=== PATIENT | male | born 1960 | race Caucasian/White ===

== ENCOUNTER 2016-06-11 12:11 | Inpatient (IN) | payer OTHER ==
[~2016-06-11] VITALS: Ht 175.3 cm; Wt 97.0 kg
[~2016-06-11 12:11] MED LIST: ASP81 GTB; ATOR10TA65; CARV6.2579 PO; FLUV20CA3 PO; OMEG1CAP97 PO; PLAVIX; UBID100C PO; ZETIA PO; [UNRECOGNIZED DRUG - CODE] PO; [UNRECOGNIZED DRUG - OTHER] PO
[2016-06-11 12:22] VITALS: Ht 175.3 cm; Wt 97.0 kg
--- NOTE | 2016-06-11 14:59 | ERD ---
ER Documentation Chief Complaint Date/Time DATE: 06/11/16 TIME: 14:53 Chief Complaint RECTAL PAIN,CONSTIPATION,FEVER AND CHILLS HPI This is a 56-year-old male presents to the ER with a history of constipation for the last 3 days. Patient is also complaining of severe rectal pain. He feels as if "there is a ball in his rectum." Patient developed fevers and chills. This morning patient was able to urinate normally however has not been able to urinate despite feeling urgency. Patient normally has a bowel movement every day without any difficulty. Patient tried taking Preparation H and a laxative. He did have 2 episodes of diarrhea secondary to laxative however is still constipated. Patient is currently sexually active in a monogamous relationship with his of 33 years. He denies any urinary dysuria or frequency. He denies any penile discharge denies any testicular pain. He denies nausea or vomiting. He denies back pain or abdominal pain. He denies any bloody stools. ROS 12 point review of systems was done, all negative except per HPI. Medications Home Meds Reported Medications [Berlinta] No Conflict Check, 90 MG PO BID 01/31/13 Fluvastatin* (Lescol*) 20 Mg Capsule, 20 MG PO DAILY 01/31/13 [Zetia] No Conflict Check, 10 PO HS 11/25/12 Atorvastatin Calcium (Atorvastatin Calcium) 10 Mg Tab, MG HS 1/2 TAB 11/25/12 Carvedilol* (Carvedilol*) 6.25 Mg Tablet, 6.25 MG PO BID 11/25/12 Niacin* (Niaspan*) 1,000 Mg Tablet.sa, 1000 MG PO DAILY 2 TAB 11/25/12 Ubidecarenone (Coenzyme Q10) 100 Mg Capsule, 100 MG PO DAILY 11/25/12 Fish Oil/[place]-3 Fatty Acids (Fish Oil 1,000 Mg Capsule) 1 Cap Capsule, 1 CAP PO DAILY 11/25/12 Aspirin (Aspirin) 81 Mg Chew, 81 MG GTB DAILY 11/25/12 [Plavix] No Conflict Check, 75 MG DAILY 11/25/12 Allergies Allergies: Coded Allergies: No Known Allergy (Verified , 11/25/12) PMhx/Soc History of Surgery: Yes Anesthesia Reaction: No Hx Neurological Disorder: No Hx Respiratory Disorders: No Hx Cardiac Disorders: Yes (HTN) Hx Psychiatric Problems: No Hx Miscellaneous Medical Probl: Yes (HIGH CHOLESTEROL) Hx Alcohol Use: Yes Hx Substance Use: No Hx Tobacco Use: No Smoking Status: Never smoker Physical Exam Vitals Vital Signs Date Time Temp Pulse Resp B/P Pulse Ox O2 Delivery O2 Flow Rate FiO2 06/11/16 15:20 102.7 06/11/16 12:22 99.1 104 18 142/86 98 Physical Exam GENERAL: The patient is well developed and appropriate for usual state of health , in no apparent distress. HEENT: Atraumatic. CHEST: Clear to auscultation bilaterally. There are no rales, wheezes or rhonchi. HEART: Regular rate and rhythm. No murmurs, clicks, rubs or gallops. ABDOMEN: Soft, nontender and nondistended. Good bowel sounds. No rebound or guarding. No gross peritonitis. No gross organomegaly or masses. No Walter sign or McBurney point tenderness. BACK: no flank tenderness. NEURO: Alert and oriented. SKIN: The skin is warm and dry. Result Diagram: 06/11/16 1530 06/11/16 1530 Results 24 hrs Laboratory Tests Test 06/11/16 15:15 06/11/16 15:30 Urine Bacteria FEW Urine Bilirubin 1+ Urine Clarity CLEAR Urine Color YELLOW Urine Glucose 0.1%% Urine Hemoglobin TRACE Urine Ictotest NEGATIVE Urine Ketones TRACE Urine Leukocyte Esterase NEGATIVE Urine Microscopic RBC 0-2/HPF Urine Microscopic WBC 0-2/HPF Urine Nitrite NEGATIVE Urine Specific [place] 1.025 Urine Total Protein 1+ Urine Urobilinogen 0.2 E.U./dL Urine pH 6.0 Alanine Aminotransferase (ALT/SGPT) 69IU/L Albumin 4.2g/dl Albumin/Globulin Ratio 1.20 Alkaline Phosphatase 77IU/L Anion Gap 17 Aspartate Amino Transf (AST/SGOT) 58IU/L Basophils # 0.010^3/ul Basophils % 0.3% Blood Morphology Comment Blood Urea Nitrogen 17mg/dl Calcium Level 9.3mg/dl Carbon Dioxide Level 28mmol/L Chloride Level 99mmol/L Creatinine 1.06mg/dl Direct Bilirubin 0.00mg/dl Eosinophils # 0.010^3/ul Eosinophils % 0.0% Globulin 3.50g/dl Glucose Level 179mg/dl Hematocrit 43.0% Hemoglobin 14.6g/dl Indirect Bilirubin 0.6mg/dl Lymphocytes # 1.210^3/ul Lymphocytes % 17.7% Mean Corpuscular Hemoglobin 28.8pg Mean Corpuscular Hemoglobin Concent 34.1g/dl Mean Corpuscular Volume 84.4fl Mean Platelet Volume 10.3fl Monocytes # 0.710^3/ul Monocytes % 9.8% Neutrophils # 4.810^3/ul Neutrophils % 72.2% Nucleated Red Blood Cells # 0.010^3/ul Nucleated Red Blood Cells % 0.0/100WBC Platelet Count 39964^3/UL Potassium Level 4.0mmol/L Red Blood Count 5.0910^6/ul Red Cell Distribution Width 13.2% Sodium Level 140mmol/L Total Bilirubin 0.6mg/dl Total Protein 7.7g/dl White Blood Count 6.610^3/ul Current Medications Medications (Trade) Dose Ordered Sig/Marcel Route PRN Reason Start Time Stop Time Status Last Admin Dose Admin Acetaminophen 1000 mg 1,000 mg ONCE STAT PO 06/11/16 15:23 06/11/16 15:24 DC 06/11/16 15:27 Sodium Chloride (NS) 1,000 ml @ 1,000 mls/hr Q1H ONCE IV 06/11/16 15:30 06/11/16 16:29 DC 06/11/16 15:35 IV Flush 10 ml 10 ml STK-MED ONCE .ROUTE 06/11/16 16:59 06/11/16 17:00 DC 06/11/16 17:09 Sodium Chloride (NS) 100 ml @ ud STK-MED ONCE .ROUTE 06/11/16 16:59 06/11/16 17:00 DC 06/11/16 17:09 Iohexol (Omnipaque 300mg/ ml) 150 ml STK-MED ONCE .ROUTE 06/11/16 16:59 06/11/16 17:00 DC 06/11/16 17:10 Procedures/MDM ER course patient was stable throughout ER course I discussed his case with , patient did appear to clinically have prostatitis however abscess cannot be ruled out. CT scan was done and did show a perirectal abscess with probable connection to the rectum. Patient will be started on IV antibiotics and he will be admitted for further management and care. Departure Diagnosis: Primary Impression: Perirectal abscess Condition: Stable MARNIE VERONICA Jun 11, 2016 14:59
--- NOTE | 2016-06-11 15:02 | RADRPT ---
PROCEDURE: XR Abdomen 1 vw. CLINICAL INDICATION: Constipation TECHNIQUE: AP view of the abdomen COMPARISON: None. FINDINGS: No organomegaly is identified. There is a small amount of fecal material scattered throughout the co michaela. There is a nonspecific bowel gas pattern. There is no evidence of bowel obstruction. No free air is identified. No calculi are identified. The axial skeleton is unremarkable. IMPRESSION: Unremarkable examination. RPTAT: HGDB .Asad Bhandari MD, MD Date Time Electronically viewed and signed by .Asad Bhandari MD, on 06/11/2016 15:02 .B/
[2016-06-11] MEDS ORDERED: ACETAMINOPHEN 500 MG TAB PO STA (15:23)
[2016-06-11] MEDS ORDERED: SOD CHLORIDE 0.9% 1,000 ML IV ONE ×2 (15:30→18:00)
[2016-06-11 15:46] LABS: ADD UMIC YES; URINE BILIRUBIN (Dip) 1+ (NEGATIVE); URINE BLOOD (Dip) TRACE (NEGATIVE); URINE COLOR YELLOW (YELLOW); URINE KETONES (Dip) TRACE (NEGATIVE); URINE LEUKOCYTE ESTERASE (Dip) NEGATIVE (NEGATIVE); URINE NITRITE (Dip) NEGATIVE (NEGATIVE); URINE TOTAL PROTEIN (Dip) 1+ (NEGATIVE); URINE UROBILINOGEN (Dip) 0.2 E.U./dL (0.1-1.0)
[2016-06-11 15:48] LABS: BASOPHILS % 0.3 % (0.0-2.0); HEMOGLOBIN 14.6 g/dl (14.0-18.0); LYMPHOCYTES # 1.2 10^3/ul (0.8-2.9); LYMPHOCYTES % 17.7 % (15.0-51.0); MEAN CORPUSCULAR HEMOGLOBIN 28.8 pg (29.0-33.0); MEAN CORPUSCULAR HGB CONC 34.1 g/dl (32.0-37.0); MEAN CORPUSCULAR VOLUME 84.4 fl (82.0-101.0); MEAN PLATELET VOLUME 10.3 fl (7.4-10.4); MONOCYTE # 0.7 10^3/ul (0.3-0.9); MONOCYTES % 9.8 % (0.0-11.0); NEUTROPHIL # 4.8 10^3/ul (1.6-7.5); NEUTROPHILS % 72.2 % (39.0-77.0); PLATELET COUNT 108 10^3/UL (140-440); RED BLOOD COUNT 5.09 10^6/ul (4.70-6.10); RED CELL DISTRIBUTION WIDTH 13.2 % (11.5-14.5); UNCORRECTED WBC 6.6 10^3/ul (4.8-10.8); WHITE BLOOD COUNT 6.6 10^3/ul (4.8-10.8)
[2016-06-11 15:51] LABS: CONDITION 1
[2016-06-11 15:56] LABS: ICTOTEST NEGATIVE (NEGATIVE)
[2016-06-11 15:58] LABS: BACTERIA,URINE FEW; URINE RBCS 0-2 /HPF (0)
[2016-06-11 16:04] LABS: ALBUMIN 4.2 g/dl (3.3-4.9)
[2016-06-11 16:07] LABS: ALBUMIN/GLOBULIN RATIO 1.2; BILIRUBIN,INDIRECT 0.6 mg/dl (0-1.1); BILIRUBIN,TOTAL 0.6 mg/dl (0.2-1.3); CREATININE 1.06 mg/dl (0.61-1.24); TOTAL PROTEIN 7.7 g/dl (6.1-8.1)
[2016-06-11 16:08] LABS: CALCIUM 9.3 mg/dl (8.4-10.2)
[2016-06-11] MEDS ORDERED: SOD CHLORIDE 0.9% 100 ML ONE (16:59)
[2016-06-11] MEDS ORDERED: IOHEXOL 300MG/ML 150 ML BTL ONE (16:59)
--- NOTE | 2016-06-11 17:23 | RADRPT ---
PROCEDURE: CT Abdomen and pelvis with contrast CLINICAL INDICATION: rectal pain fevers and chills TECHNIQUE: Spiral CT images through the abdomen and pelvis without administration of oral and duri ng administration of 100 cc of Omnipaque-300 contrast material. Multiplanar reconstructions. The t otal exam CTDI equals 20.46 mGy and the total exam DLP equals 1277.22 mGy-cm. COMPARISON: 12/09/2013 FINDINGS: Slight atelectasis of the lung bases is seen. No pleural effusion is seen. Aortic and coronary artery calcification is again seen. The liver, spleen, adrenals, and pancreas are unremarkable in appearance. Small probable bilateral renal cortical cysts are again seen, 1 on the right likely with a small amount of milk of calcium ur ine. Tiny nonobstructing right renal calyceal stone is again seen. The gallbladder is grossly unre markable. No biliary or pancreatic ductal dilatation is seen. Small fat-containing umbilical hernia . The appendix is normal in appearance. There is a rim-enhancing fluid collection adjacent to the d istal rectum with septations within. This measures 3.8 cm AP by 2.4 cm transverse by 2.7 cm cranial caudad. There is likely fistulous connection with the rectum at the 3 o'clock position. Surroundi ng stranding of the perirectal fat is seen. There is also mild presacral stranding. Colonic divert iculosis without evidence of diverticulitis. There is no evidence for small bowel obstruction or fr ee air. There is mild degenerative change of the spine. IMPRESSION: Perirectal abscess with probable connection to the rectum at the 3 o'clock position. Small renal cysts and tiny nonobstructing right renal stone. RPTAT: HLBE Physician Delgado Date Time Electronically viewed and signed by Physician Delgado on 06/11/2016 17:23 GINA/
[2016-06-11] MEDS ORDERED: ONDANSETRON 4 MG INJ IV STA (17:55)
[2016-06-11] MEDS ORDERED: ERTAPENEM SODIUM 1 GM in SOD CHLORIDE 0.9% 100 ML IVPB ONE (18:00)
[2016-06-11] MEDS ORDERED: morphine 10 MG INJ IV ONE (18:00)
[2016-06-11] MEDS ORDERED: SOD CHLORIDE 0.9% 1,000 ML IV SCH (20:20)
[2016-06-11] MEDS ORDERED: ACETAMINOPHEN 325 MG TAB PO PRN (20:30)
[2016-06-11] MEDS ORDERED: ONDANSETRON 4 MG INJ IV PRN ×2 (20:30→23:30)
[2016-06-11 21:04] VITALS: TEMP 98.7
[2016-06-11 21:15] VITALS: BP 125/87; PULSE 72; RESP 20
[2016-06-11] MEDS ORDERED: morphine 2 MG INJ IV PRN (23:30)
[2016-06-11] MEDS ORDERED: ZOLPIDEM 5 MG TAB PO PRN (23:30)
[2016-06-11] MEDS ORDERED: HYDROCODONE/APAP (5/325) TAB PO PRN (23:30)
--- NOTE | 2016-06-11 23:44 | CONS ---
DATE OF ADMISSION: 06/11/2016 DATE OF CONSULTATION: 06/11/2016 TYPE OF CONSULTATION: Surgical. REFERRING PHYSICIAN: Kim Montenegro DO CHIEF COMPLAINT: 1. Perirectal abscess. 2. Perirectal pain. 3. Hypertension. 4. Cardiac stent on multiple anticoagulation and antiplatelets. 5. Fever. 6. Abnormal LFT. HISTORY OF PRESENT ILLNESS: Mr. Tamela Earl is a 56-year-old male with multiple significant com orbidities who presents with 2 days of worsening perianal pain associated with fevers, but no nausea , vomiting. No chest pain, no shortness of breath. No visual or neurologic changes. No dysuria or abdominal pain. No previous history of this. No trauma or instrumentation of the area. The patie nt has had a colonoscopy a few years ago without any significant findings. In the emergency room, he was found to be afebrile, but normal CBC and normal chemistry. However, C T scan identifies perirectal abscess with probable connection to the rectum at 3 o'clock position th at is 3.8 x 2.5 cm with a tiny nonobstructing right renal stone. Surgical consult is obtained for f urther evaluation and treatment. PAST MEDICAL HISTORY: 1. Hypertension. 2. Coronary artery disease. 3. [place]. 4. Angina. 5. Kidney stone. 6. Hypercholesterolemia. 7. Perirectal abscess. 8. Antiplatelet therapy. 9. History of renal insufficiency. 10. Fatty liver. 11. Abnormal LFT. PAST SURGICAL HISTORY: 1. Cardiac stent. 2. Colonoscopy. MEDICATIONS: As per MAR, includin. Plavix. 2. Aspirin. SOCIAL HISTORY: Occasional alcohol. Denies recreational drugs or tobacco. Here with . FAMILY HISTORY: Noncontributory. REVIEW OF SYSTEMS: A 12-point review of systems negative unless addressed in HPI. PHYSICAL EXAMINATION: VITAL SIGNS: T-max 102.7, T-current 98.7, pulse 60s to 70s, blood pressure 159/87, saturating 99% o n room air. GENERAL: No acute distress, comfortable, pleasant. HEENT: Pupils equal, reactive. No scleral icterus. Mucous membranes are moist. NECK: Supple. No JVD. CHEST: Normal respiratory effort. No wheezing. CARDIAC: S1, S2 present. ABDOMEN: Soft, nontender. EXTREMITIES: No edema. VASCULAR: Capillary refill is less than 2 seconds. NEUROLOGIC: Alert, oriented, moves all 4 extremities grossly. RECTAL: Tender area with erythema; however, no induration or fluctuance palpable. Small hemorrhoid s, swollen and minimally tender. The patient is uncomfortable for a rectal exam. LABORATORY AND RADIOGRAPHIC: As per chart and HPI. ASSESSMENT AND PLAN: Mr. Tamela Earl is a 56-year-old male with multiple significant comorbidit ies. 1. Perirectal abscess that is not palpable. Will defer to IR for drainage, especially in the setti ng of antiplatelet therapy. Continue antibiotics. 2. Possible fistula in ano as source of the abscess. The patient will need eventual colorectal geraldine gical evaluation. 3. Cardiac stents with history of myocardial infarction and antiplatelet therapy. The patient is h igh risk for bleeding. Therefore, will avoid surgery and plan for IR drainage placement. 4. Hypertension. Continue diet and medication control. 5. Hypercholesterolemia. Continue diet and medication control. 6. Kidney stone without acute obstruction. Continue fluid hydration. Thank you very much for consulting me in this patient's care. Dictated By: REYNA MATUTE/NTS Conf#: [id number] DID#: [id number] CC: RODERICK VELA MD;*EndCC*
[2016-06-11] MEDS ORDERED: VANCOMYCIN IV PER PHARMACY XX SCH (23:45)
[2016-06-12] VITALS (12 sets, daily range): BP systolic 13–129; BP diastolic 61–74; PULSE 72–89; RESP 14–20
[2016-06-12] MEDS: TAMSULOSIN (SR) 0.4 MG CAP PO SCH ×2 (00:09→20:34)
[2016-06-12] MEDS: PIPER-TAZO 3.375 GM IV (PMX) 100 ML IVPB SCH ×4 (00:09→21:51)
[2016-06-12] MEDS: SOD CHLORIDE 0.9% 1,000 ML IV SCH ×4 (00:15→23:19)
[2016-06-12] MEDS ORDERED: VANCOMYCIN 2 GM in SOD CHLORIDE 0.9% 500 ML IVPB ONE (01:00)
[2016-06-12] MEDS ORDERED: CARV6.2579 PO (04:56)
[2016-06-12 06:37] LABS: PROTIME 13.2 Sec (12.2-14.2)
[2016-06-12 06:45] LABS: BASOPHILS % 0.5 % (0.0-2.0); EOSINOPHILS % 0.2 % (0.0-7.0); HEMOGLOBIN 14.1 g/dl (14.0-18.0); LYMPHOCYTES # 1.9 10^3/ul (0.8-2.9); LYMPHOCYTES % 24.5 % (15.0-51.0); MEAN CORPUSCULAR HGB CONC 34.5 g/dl (32.0-37.0); MEAN PLATELET VOLUME 11.2 fl (7.4-10.4); MONOCYTE # 0.7 10^3/ul (0.3-0.9); MONOCYTES % 8.6 % (0.0-11.0); NEUTROPHIL # 5.3 10^3/ul (1.6-7.5); NEUTROPHILS % 66.2 % (39.0-77.0); PLATELET COUNT 105 10^3/UL (140-440); RED BLOOD COUNT 4.88 10^6/ul (4.70-6.10); RED CELL DISTRIBUTION WIDTH 13.1 % (11.5-14.5); UNCORRECTED WBC 7.9 10^3/ul (4.8-10.8); WHITE BLOOD COUNT 7.9 10^3/ul (4.8-10.8)
[2016-06-12 06:51] LABS: ALBUMIN 3.7 g/dl (3.3-4.9); POTASSIUM 4.3 mmol/L (3.5-5.1)
[2016-06-12 06:54] LABS: CREATININE 0.94 mg/dl (0.61-1.24)
[2016-06-12 06:55] LABS: CALCIUM 8.7 mg/dl (8.4-10.2); CHOL/HDL RATIO 8.1 RATIO; CONDITION 1; PHOSPHORUS 3.2 mg/dl (2.5-4.9)
[2016-06-12 07:33] LABS: ALBUMIN 3.7 g/dl (3.3-4.9)
[2016-06-12 07:36] LABS: BILIRUBIN,INDIRECT 0.6 mg/dl (0-1.1); BILIRUBIN,TOTAL 0.6 mg/dl (0.2-1.3); TOTAL PROTEIN 6.5 g/dl (6.1-8.1)
[2016-06-12] MEDS: FISH OIL 1,000 MG CAP PO SCH (08:16)
[2016-06-12] MEDS: NIACIN 500 MG TAB PO SCH (08:16)
[2016-06-12] MEDS ORDERED: CLOPIDOGREL 75 MG TAB PO SCH (09:00)
[2016-06-12] MEDS ORDERED: ASPIRIN 81 MG TAB PO SCH (09:00)
[2016-06-12] MEDS ORDERED: SPECIAL NON-STANDARD MEDICATION PO SCH ×2 (09:00)
[2016-06-12] MEDS ORDERED: VANCOMYCIN 1.5 GM in SOD CHLORIDE 0.9% 250 ML IVPB SCH (13:00)
[2016-06-12] MEDS ORDERED: MIDAZOLAM 1 MG/ML 2 ML INJ ONE (13:00)
[2016-06-12] MEDS ORDERED: LIDOCAINE 1% (MDV) 20 ML INJ ONE (13:00)
[2016-06-12] MEDS ORDERED: FENTAnyl 50 MCG/ML VIAL ONE (13:00)
[2016-06-12] MEDS ORDERED: SOD CHLORIDE 0.9% 500 ML ONE (13:01)
--- NOTE | 2016-06-12 14:01 | PN ---
Date/Time of Note Date/Time of Note DATE: 06/12/16 TIME: 13:59 Assessment/Plan Lines/Catheters IV Catheter Type (from [facility]): Peripheral IV Assessment/Plan Chief Complaint/Hosp Course 1. Perirectal abscess that is not palpable. Will defer to IR for drainage, especially in the setting of antiplatelet therapy. -Continue antibiotics. -Will need eventual workup for possible fistula 2. Possible fistula in ano as source of the abscess. The patient will need eventual colorectal surgical evaluation. 3. Cardiac stents with history of myocardial infarction and antiplatelet therapy. The patient is high risk for bleeding. Therefore, will avoid surgery and plan for IR drainage placement. 4. Hypertension. Continue diet and medication control. 5. Hypercholesterolemia. Continue diet and medication control. 6. Kidney stone without acute obstruction. Continue fluid hydration. Thank you Problems: Subjective 24 Hr Interval Summary Pain persists. No nausea or vomiting. No fevers or chills. No chest pain or shortness of breath. No abdominal pain. No visual or neurologic changes. No dysuria. Patient going for IR needle aspiration. Exam/Review of Systems Vital Signs Vitals Vital Signs Date Time Temp Pulse Resp B/P Pulse Ox O2 Delivery O2 Flow Rate FiO2 06/12/16 08:00 99.2 81 18 119/68 96 Room Air Intake and Output 06/11/16 06/11/16 06/12/16 15:00 23:00 07:00 Intake Total 250 ml Balance 250 ml Exam Free Text/Dictation GENERAL: No acute distress, comfortable, pleasant. HEENT: Pupils equal, reactive. No scleral icterus. Mucous membranes are moist. NECK: Supple. No JVD. CHEST: Normal respiratory effort. No wheezing. CARDIAC: S1, S2 present. ABDOMEN: Soft, nontender. EXTREMITIES: No edema. VASCULAR: Capillary refill is less than 2 seconds. NEUROLOGIC: Alert, oriented, moves all 4 extremities grossly. RECTAL: Tender area with erythema; however, no induration or fluctuance palpable. Small hemorrhoids, swollen and minimally tender. The patient is uncomfortable for a rectal exam. Results Result Diagram: 06/12/16 0545 06/12/16 0545 REYNA LIM MD Jun 12, 2016 14:01
[2016-06-12] MEDS ORDERED: DOCUSATE SODIUM 100 MG CAP PO PRN (15:00)
[2016-06-12] MEDS ORDERED: ACETAMINOPHEN 325 MG TAB PO PRN (15:00)
[2016-06-12] MEDS ORDERED: HYDROCODONE/APAP (5/325) TAB PO PRN (15:00)
[2016-06-12] MEDS ORDERED: NACL 0.9% 3 ML SYG IV SCH (15:00)
[2016-06-12] MEDS ORDERED: ONDANSETRON 4 MG TAB PO PRN (15:00)
[2016-06-12] MEDS ORDERED: ZOLPIDEM 5 MG TAB PO PRN (15:00)
--- NOTE | 2016-06-12 15:41 | HP ---
Date/Time of Note Date/Time of Note DATE: 06/12/16 TIME: 15:23 Assessment/Plan VTE Prophylaxis VTE Prophylaxis Intervention: SCD's Lines/Catheters IV Catheter Type (from Nrsg): Peripheral IV Assessment/Plan Assessment/Plan [facility] 1. Mr. Earl is a 56-year-old man with a history of heart disease and newly recognized nakita-rectal abscess, now s/p drainage by Interventional Radiology. Has recently-recognized diet-controlled diabetes (no testing at home , only up once at night to use the washroom). No other clear risk factors for this infection, including frequent infections or chronic constipation. * Admit to Med/Surg inpatient * My thanks to Dr. Roger Bolden for his surgical consult * Hold Brilinta for next 24-hours, per Dr. Nicole (Cardiology) * Treated empirically with Zosyn and Vancomycin (pharmacy to dose) 2. H/o cardiac drug-eluting stent to circumflex coronary artery in 2012. Takes aspirin 81mg and Brilinta 60mg once daily. No active cardiac symptoms, despite recent efforts to exercise (walking). Discussed with Dr. Jhon Nicole, his watch crystal edge grinder, who said holding Brilinta for a day would be acceptable. Patient is NOT taking coincident Plavix, but does take aspirin. 3. Hypertension. 4. Hypercholesterolemia. 5. Previous nephrolithiasis. 6. DVT prophylaxis: SCDs for now 7. GI prophylaxis with famotidine 20mg PO BID 8. Disposition: Home once cultures identify the suspect organisms; anticipate oral antibiotics after discharge * Patient is full-code Autumn Mckeon MD PhD [phone] HPI/ROS Admit Date/Time Admit Date/Time Jun 11, 2016 at 20:20 Hx of Present Illness CHIEF COMPLAINT: Nakita-rectal pain HISTORY OF PRESENT ILLNESS: Mr. Earl is a 56-year-old patient of Dr. Hernandez Hoffmann who was doing very well until the beginning of this week when he started having more constipation. He suddenly developed loose stooling the middle of this week, and yesterday woke up at 5 AM with fever, chills and diaphoresis. He went to the washroom, and suddenly had onset of severe rectal pain that he described as 10 out of 10. Last night he had difficulty passing urine, and felt a fullness in the lower abdomen. He has been more attentive to his sugars recently, with a question raised about possible early diabetes. He had some urinary frequency 3 months ago, but otherwise no substantial urinary symptoms. He is up only once at night to use the bathroom. PAST MEDICAL HISTORY: 1. 3 months ago he developed blurring in his right eye, and was diagnosed with a retinal vein occlusion. His certified orthotist in [place] treated him with the EGF injections. 2. Pre-diabetes, as noted above. His most recent hemoglobin A1c is 7% 3. Hypertension 4. Hypercholesterolemia 5. Colonoscopy 3-1/2 years ago, after his brother of colorectal cancer. 6. No history of surgery, hospitalization, or broken bones 7. No known drug allergies. SOCIAL HISTORY: He lives with his . He has 2 children. He used on a gas station. He is a social alcohol drinker, and has never smoked cigarettes. FAMILY HISTORY: His mother is alive and well. His father after living 13 years with a heart transplant. The family moved from [place] when the patient was very young. Male with multiple significant comorbidities who presents with 2 days of worsening perianal pain associated with fevers, but no nausea, vomiting. No chest pain, no shortness of breath. No visual or neurologic changes. No dysuria or abdominal pain. No previous history of this. No trauma or instrumentation of the area. The patient has had a colonoscopy a few years ago without any significant findings. In the emergency room, he was found to be afebrile, but normal CBC and normal chemistry. However, CT scan identifies perirectal abscess with probable connection to the rectum at 3 o'clock position that is 3.8 x 2.5 cm with a tiny nonobstructing right renal stone. Surgical consult is obtained for further evaluation and treatment. PAST MEDICAL HISTORY: 1. Hypertension. 2. Coronary artery disease. 3. [place]. 4. Angina. 5. Kidney stone. 6. Hypercholesterolemia. 7. Perirectal abscess. 8. Antiplatelet therapy. 9. History of renal insufficiency. 10. Fatty liver. 11. Abnormal LFT. PAST SURGICAL HISTORY: 1. Cardiac stent. 2. Colonoscopy. MEDICATIONS: As per MAR, includin. Plavix. 2. Aspirin. SOCIAL HISTORY: Occasional alcohol. Denies recreational drugs or tobacco. Here with . FAMILY HISTORY: Noncontributory. REVIEW OF SYSTEMS: A 12-point review of systems negative unless addressed in HPI. PHYSICAL EXAMINATION: VITAL SIGNS: T-max 102.7, T-current 98.7, pulse 60s to 70s, blood pressure 159/ 87, saturating 99% on room air. GENERAL: No acute distress, comfortable, pleasant. HEENT: Pupils equal, reactive. No scleral icterus. Mucous membranes are moist. NECK: Supple. No JVD. CHEST: Normal respiratory effort. No wheezing. CARDIAC: S1, S2 present. ABDOMEN: Soft, nontender. EXTREMITIES: No edema. VASCULAR: Capillary refill is less than 2 seconds. NEUROLOGIC: Alert, oriented, moves all 4 extremities grossly. RECTAL: Tender area with erythema; however, no induration or fluctuance palpable. Small hemorrhoids, swollen and minimally tender. The patient is uncomfortable for a rectal exam. LABORATORY AND RADIOGRAPHIC: As per chart and HPI. ROS No headache, chest pain, dyspnea, nausea now, or abdominal pain. PMH/Family/Social Social History Smoking Status: Never smoker Exam/Review of Systems Vital Signs Vitals Vital Signs Date Time Temp Pulse Resp B/P Pulse Ox O2 Delivery O2 Flow Rate FiO2 06/12/16 14:54 98.9 72 18 129/74 96 Room Air 06/12/16 14:10 3 Intake and Output 06/11/16 06/11/16 06/12/16 15:00 23:00 07:00 Intake Total 250 ml Balance 250 ml Exam Constitutional: alert, oriented Psych: nl mood/affect, no complaints, No anxiety, No confusion, No depression Head: atraumatic, normocephalic Eyes: EOMI, PERRL, nl conjunctiva, nl sclera ENMT: mucosa pink and moist Neck: non-tender, supple, No bruits, No jvd, No masses, No nuchal rigidity, No thyromegaly Respiratory: clear to auscultation, normal air movement, No congested cough, No crackles/rales, No diminished breath sounds, No intercostal retraction, No labored breathing, No respirations, No wheezing Cardiovascular: nl pulses, regular rate and rhythm Gastrointestinal: bowel sounds, nl liver, spleen, non-tender, soft, No ascites, No distended, No firm, No hepatomegaly, No mass, No rebound or guarding, No splenomegaly, No surgical scars, No tender Genitourinary - Male: No CVA tenderness Musculoskeletal: nl extremities to inspection, other, No joint tenderness, No muscle weakness, No nl gait and stance, No range of motion, No spine non-tender, No swelling Extremities: normal pulses, No calf tenderness, No clubbing, No cyanosis, No edema, No palpable cord, No pitting pedal edema, No tenderness Neurological: BONDERIZER II-XII intact, nl mental status, nl speech, nl strength Labs Result Diagram: 06/12/1654406/12/16544 Medications Medications Current Medications Piperacillin Sod/ Tazobactam Sod (Zosyn 3.375gm/ 100 ml (Pmx)) 100 ml @ 200 mls /hr Q8 IVPB Last administered on 06/12/16at 14:53; Admin Dose 200 MLS/HR; Start 06/11/16 at 23:30 Ondansetron HCl (Zofran Inj) 4 mg Q6H PRN IV NAUSEA AND/OR VOMITING; Start at 23:30 Zolpidem Tartrate (Ambien) 5 mg HS PRN PO INSOMNIA; Start 06/11/16 at 23:30 Morphine Sulfate (morphine) 2 mg Q3H PRN IV SEVERE PAIN LEVEL 7-10; Start at 23:30 Acetaminophen/ Hydrocodone Bitart 1 tab 1 tab Q4H PRN PO MILD PAIN LEVEL 1-3; Start 06/11/16 at 23:30 Sodium Chloride (NS) 1,000 ml @ 100 mls/hr Q10H IV Last administered on at 00:15; Admin Dose 100 MLS/HR; Start 06/11/16 at 23:30 Tamsulosin HCl (Flomax) 0.4 mg DAILY@21 PO Last administered on 06/12/16at 00: 09; Admin Dose 0.4 MG; Start 06/11/16 at 23:30 Vancomycin HCl PER PHARMACY DOSING NOTE XX ; Start 06/11/16 at 23:45 Vancomycin HCl/ Sodium Chloride (Vancocin/NS) 250 ml @ 83.333 mls/ hr Q12H IVPB ; Start 06/12/16 at 13:00 Fish Oil (Fish Oil) 1,000 mg DAILY PO ; Start 06/12/16 at 09:00 Niacin (Niacin) 1,000 mg DAILY PO ; Start 06/12/16 at 09:00 Atorvastatin Calcium (Lipitor) 10 mg HS PO ; Start 06/12/16 at 21:00 EZETIMIBE (Zetia) 10 mg HS PO ; Start 06/12/16 at 21:00 Clopidogrel Bisulfate (plaVIX) 75 mg DAILY PO ; Start 06/12/16 at 09:00; Status UNV Aspirin (Aspirin) 81 mg DAILY PO ; Start 06/12/16 at 09:00; Status UNV Non-Formulary Medication 1 ea BID PO ; Start 06/12/16 at 09:00; Status UNV Non-Formulary Medication 1 ea DAILY PO ; Start 06/12/16 at 09:00; Status UNV Miscellaneous Information (*Order Clarification Bulletin) MEDICATION REQUIRES CLARIFICATI... Q8H XX Last administered on 06/12/16at 08:16; Admin Dose 1 EA; Start 06/11/16 at 23:45 Carvedilol (Coreg) 6.25 mg DAILY PO ; Start 06/12/16 at 09:00 Miscellaneous Information (*Rx Drug Level Order Reminder*) 1 ONCE ONCE XX ; Start 06/13/16 at 12:00; Stop 06/13/16 at 12:01 MICHELLE MCKEON M.D. Jun 12, 2016 15:37
--- NOTE | 2016-06-12 16:12 | RADRPT ---
PROCEDURE: CT guided perirectal abscess drainage. CLINICAL INDICATION: . Rectal pain. Perirectal abscess. TECHNIQUE: Informed consent was obtained. The procedure, risks, benefits, complications and alternatives were explained to the patient. Risks including bleeding and infection were explained. The patient underst ood and was willing to proceed. A procedural pause was performed. The patient's name, date of , and procedure to be performed w ere verified. Using local anesthetic, sterile technique and CT guidance, a 19-gauge Yueh needle was advanced into the fluid collection in the perirectal region posteriorly. CT scan was performed confirming positio n. Purulent fluid was also aspirated confirming position. The needle from the Yueh catheter was re moved, leaving the Yueh catheter in place within the fluid collection. A 0.035-inch Amplatz guidewi re was advanced through the Yueh catheter into the fluid collection. The Yueh catheter was removed. The tract was dilated to 8-Citizen Of [place]. An 8.5 Citizen [place] Bhatt-Gonzalez drainage catheter was advanced ov er the guidewire into the fluid collection. The guidewire was removed. Additional scanning was per formed confirming position. The catheter was then sutured to the patient's skin with 2-0 silk. Masha roximately 10 ml of purulent fluid was aspirated. The catheter was connected to a drainage bag. A dressing was applied. The patient tolerated procedure well. COMPARISON: None. FINDINGS: Final images demonstrate the drainage catheter in satisfactory position within the perirectal absces s. IMPRESSION: 1. Successful CT guided perirectal abscess drainage. Call report: A call report of the findings was made to Dr. Bolden on 06/12/2016 at 1600 hours. RPTAT: QQ .Cisco Long MD, MD Date Time Electronically viewed and signed by .Cisco Long MD, MD on 06/12/2016 16:12 .R/
[2016-06-12] MEDS: FAMOTIDINE 20 MG TAB PO SCH ×2 (16:53→20:33)
[2016-06-12] MEDS: ATORVASTATIN 10 MG TAB PO SCH (20:33)
[2016-06-12] MEDS: EZETIMIBE 10 MG TAB PO SCH (20:34)
[2016-06-13] MEDS: VANCOMYCIN 1.5 GM in SOD CHLORIDE 0.9% 250 ML IVPB SCH ×2 (03:28→16:07)
[2016-06-13] MEDS: SOD CHLORIDE 0.9% 1,000 ML IV SCH ×2 (04:38→15:30)
[2016-06-13 06:25] LABS: BASOPHILS % 0.5 % (0.0-2.0); HEMATOCRIT 36.7 % (42.0-52.0); HEMOGLOBIN 12.6 g/dl (14.0-18.0); LYMPHOCYTES # 1.2 10^3/ul (0.8-2.9); MEAN CORPUSCULAR HEMOGLOBIN 28.7 pg (29.0-33.0); MEAN CORPUSCULAR HGB CONC 34.4 g/dl (32.0-37.0); MEAN CORPUSCULAR VOLUME 83.5 fl (82.0-101.0); MEAN PLATELET VOLUME 11.1 fl (7.4-10.4); MONOCYTE # 0.5 10^3/ul (0.3-0.9); MONOCYTES % 10.9 % (0.0-11.0); NEUTROPHILS % 62.6 % (39.0-77.0); PLATELET COUNT 85 10^3/UL (140-440); RED BLOOD COUNT 4.39 10^6/ul (4.70-6.10); RED CELL DISTRIBUTION WIDTH 13.3 % (11.5-14.5); UNCORRECTED WBC 4.8 10^3/ul (4.8-10.8); WHITE BLOOD COUNT 4.8 10^3/ul (4.8-10.8)
[2016-06-13 06:27] LABS: CONDITION 1
[2016-06-13] MEDS: PIPER-TAZO 3.375 GM IV (PMX) 100 ML IVPB SCH ×3 (06:27→21:34)
[2016-06-13 06:54] LABS: POTASSIUM 3.8 mmol/L (3.5-5.1)
[2016-06-13 06:57] LABS: CALCIUM 8.5 mg/dl (8.4-10.2); CREATININE 0.95 mg/dl (0.61-1.24)
[2016-06-13 07:07] LABS: T3 UPTAKE 36.8 % (23.5-40.5)
--- NOTE | 2016-06-13 07:42 | CONS ---
DATE OF ADMISSION: 06/11/2016 DATE OF CONSULTATION: 06/12/2016 TYPE OF CONSULTATION: Cardiology. REFERRING PHYSICIAN: ____ REASON FOR CONSULTATION: Coronary artery disease. CHIEF COMPLAINT: Perirectal pain. HISTORY OF PRESENT ILLNESS: Thank you for this referral. History obtained from the patient, luis alberto mensah with ____. This is a pleasant 56-year-old gentleman known to me from previous outpatient w orkup, although he has not recently followed up, history of significant coronary artery disease, who came in with severe rectal pain. The patient had a workup which showed perirectal abscess. He gresham d required I and D of his rectal abscess. The patient is on Brilinta. We are kindly asked if this can be discontinued. The patient denies any chest pain or pressure to me at this point. PAST MEDICAL HISTORY: History of coronary artery disease, status multiple PCIs as well as [place] in the past, history of diabetes, hypertension, CVA, dyslipidemia, difficult to tolerate statins. History of blurring of the right eye and possible retinal vein occlusion. SOCIAL HISTORY: The patient lives with his family. Does not smoke or drink. FAMILY HISTORY: His father ____has coronary artery disease. ALLERGIES: NO REPORTED ALLERGIES. MEDICATIONS: As per medical reconciliation. PHYSICAL EXAMINATION: VITAL SIGNS: Temperature 98, heart rate of 72, blood pressure 129/74, respiration rate of 18, satur ating 96%. HEENT: Normocephalic, atraumatic. Pupils are equal. CARDIOVASCULAR: Regular rate and rhythm. PULMONARY: With no wheezes. GASTROINTESTINAL: Soft, nontender. EXTREMITIES: With lower extremity edema. NEUROLOGIC: Awake and alert. PSYCHIATRIC: Calm, pleasant. LABORATORY: Shows cholesterol 213, triglycerides 247, LDL of 138, HDL 26. ASSESSMENT AND PLAN: 1. Perirectal abscess, status post drainage. 2. Coronary artery disease. 3. History of myocardial infarction. 4. Dyslipidemia. 5. Hypertension. 6. Prediabetic/diabetic. RECOMMENDATIONS: Continue with statin as tolerated. The patient currently has been placed on Plavi x and aspirin. It is okay to hold the Plavix, if needed. Coreg will be continued and increased as needed. Patient advised to follow up as an outpatient. Dictated By: CHRISTEN GARCIA/DESI Conf#: [id number] DID#: [id number] CC: ;*EndCC*
[2016-06-13 08:00] VITALS: BP 118/61; PULSE 67
[2016-06-13] MEDS: FISH OIL 1,000 MG CAP PO SCH (08:10)
[2016-06-13] MEDS: FAMOTIDINE 20 MG TAB PO SCH ×2 (08:10→20:50)
[2016-06-13] MEDS: NIACIN 500 MG TAB PO SCH (08:10)
--- NOTE | 2016-06-13 12:15 | PN ---
Date/Time of Note Date/Time of Note DATE: 06/13/16 TIME: 12:11 Assessment/Plan VTE Prophylaxis VTE Prophylaxis Intervention: ambulation Lines/Catheters IV Catheter Type (from [facility]): Peripheral IV Central line still needed: No Urinary Cath still in place: No Assessment/Plan Assessment/Plan 1. Mr. Earl is a 56-year-old man with a history of heart disease and newly recognized patricio-rectal abscess, now s/p drainage by Interventional Radiology on 06/12/16. Has recently-recognized diet-controlled diabetes (no testing at home, only up once at night to use the washroom). No other clear risk factors for this infection, including frequent infections or chronic constipation. * My thanks to Dr. Roger Bolden for his surgical consult * Hold Brilinta for next 24-hours, per Dr. Nicole (Cardiology) * Treated empirically with Zosyn and Vancomycin (pharmacy to dose); will likely d/c vancomycin as culture growing GNR. Sensitivities pending. 2. H/o cardiac drug-eluting stent to circumflex coronary artery in 2012. Takes aspirin 81mg and Brilinta 60mg once daily. No active cardiac symptoms, despite recent efforts to exercise (walking). Discussed with Dr. Jhon Nicole, his home health lpn, who said holding Brilinta for a day would be acceptable. Patient is NOT taking coincident Plavix, but does take aspirin. 3. Hypertension. 4. Hypercholesterolemia. 5. Previous nephrolithiasis. 6. DVT prophylaxis: SCDs for now 7. GI prophylaxis with famotidine 20mg PO BID 8. Disposition: Home once cultures identify the suspect organisms; anticipate oral antibiotics after discharge * Patient is full-code Subjective 24 Hr Interval Summary Free Text/Dictation Doing well. Pain improved. Had BM. Drain in place. Constitutional: no complaints Exam/Review of Systems Vital Signs Vitals Vital Signs Date Time Temp Pulse Resp B/P Pulse Ox O2 Delivery O2 Flow Rate FiO2 06/13/16 08:00 98.0 67 118/61 99 Room Air 06/12/16 20:00 16 06/12/16 14:10 3 Intake and Output 06/12/16 06/12/16 06/13/16 14:59 22:59 06:59 Intake Total 3530 ml 750 ml Output Total 10 ml Balance -10 ml 3530 ml 750 ml Exam Constitutional: alert, oriented Psych: no complaints Head: normocephalic Eyes: nl conjunctiva ENMT: nl external ears & nose Neck: supple Respiratory: clear to auscultation Cardiovascular: regular rate and rhythm Gastrointestinal: soft Genitourinary - Male: other (Rectal drain in place.) Musculoskeletal: nl extremities to inspection Extremities: normal pulses Neurological: FLIGHT SERVICE SPECIALIST II-XII intact Skin: nl turgor Results Result Diagram: 06/13/1651906/13/16519 Results 24 hrs Laboratory Tests Test 06/13/16 05:20 Anion Gap 15 Basophils # 0.0 Basophils % 0.5 Blood Morphology Comment Blood Urea Nitrogen 12 Calcium Level 8.5 Carbon Dioxide Level 25 Chloride Level 106 Creatinine 0.95 Eosinophils # 0.0 Eosinophils % 1.0 Free Thyroxine Index 3.05 Glucose Level 123 Hematocrit 36.7 L Hemoglobin 12.6 L Lymphocytes # 1.2 Lymphocytes % 25.0 Mean Corpuscular Hemoglobin 28.7 L Mean Corpuscular Hemoglobin Concent 34.4 Mean Corpuscular Volume 83.5 Mean Platelet Volume 11.1 H Monocytes # 0.5 Monocytes % 10.9 Neutrophils # 3.0 Neutrophils % 62.6 Nucleated Red Blood Cells # 0.0 Nucleated Red Blood Cells % 0.0 Platelet Count 85 L Potassium Level 3.8 Red Blood Count 4.39 L Red Cell Distribution Width 13.3 Sodium Level 142 Thyroxine (T4) 8.3 Triiodothyronine (T3) Uptake 36.8 White Blood Count 4.8 # Medications Medications Current Medications Piperacillin Sod/ Tazobactam Sod (Zosyn 3.375gm/ 100 ml (Pmx)) 100 ml @ 200 mls /hr Q8 IVPB Last administered on 06/13/16at 06:27; Admin Dose 200 MLS/HR; Start 06/11/16 at 23:30 Ondansetron HCl (Zofran Inj) 4 mg Q6H PRN IV NAUSEA AND/OR VOMITING; Start at 23:30 Morphine Sulfate (morphine) 2 mg Q3H PRN IV SEVERE PAIN LEVEL 7-10; Start at 23:30 Acetaminophen/ Hydrocodone Bitart 1 tab 1 tab Q4H PRN PO MILD PAIN LEVEL 1-3; Start 06/11/16 at 23:30 Sodium Chloride (NS) 1,000 ml @ 100 mls/hr Q10H IV Last administered on at 23:19; Admin Dose 100 MLS/HR; Start 06/11/16 at 23:30 Tamsulosin HCl (Flomax) 0.4 mg DAILY@21 PO Last administered on 06/12/16at 20: 34; Admin Dose 0.4 MG; Start 06/11/16 at 23:30 Vancomycin HCl (Vanco Iv Per Pharmacy) PER PHARMACY DOSING NOTE XX ; Start at 23:45 Fish Oil (Fish Oil) 1,000 mg DAILY PO Last administered on 06/13/16 08:10; Admin Dose 1,000 MG; Start 06/12/16 at 09:00 Niacin (Niacin) 1,000 mg DAILY PO Last administered on 06/13/16at 08:10; Admin Dose 1,000 MG; Start 06/12/16 at 09:00 Atorvastatin Calcium (Lipitor) 10 mg HS PO Last administered on 06/12/16 20: 33; Admin Dose 10 MG; Start 06/12/16 at 21:00 EZETIMIBE (Zetia) 10 mg HS PO Last administered on 06/12/16 20:34; Admin Dose 10 MG; Start 06/12/16 at 21:00 Clopidogrel Bisulfate (plaVIX) 75 mg DAILY PO ; Start 06/12/16 at 09:00; Status UNV Aspirin (Aspirin) 81 mg DAILY PO ; Start 06/12/16 at 09:00; Status UNV Non-Formulary Medication 1 ea BID PO ; Start 06/12/16 at 09:00; Status UNV Miscellaneous Information (*Order Clarification Bulletin) MEDICATION REQUIRES CLARIFICATI... Q8H XX Last administered on 06/12/16at 15:55; Admin Dose 1 EA; Start 06/11/16 at 23:45 Carvedilol (Coreg) 6.25 mg DAILY PO Last administered on 06/13/16at 08:10; Admin Dose 6.25 MG; Start 06/12/16 at 09:00 Miscellaneous Information (*Rx Drug Level Order Reminder*) 1 ONCE ONCE XX ; Start 06/13/16 at 15:00; Stop 06/13/16 at 15:01 Ondansetron HCl (Zofran Tab) 4 mg Q6H PRN PO NAUSEA AND/OR VOMITING; Start at 15:00 Acetaminophen (Tylenol Tab) 650 mg Q6H PRN PO PAIN LEVEL 1-3 OR FEVER Last administered on 06/12/16at 20:46; Admin Dose 650 MG; Start 06/12/16 at 15:00 Acetaminophen/ Hydrocodone Bitart ([place] (5/325)) 1 tab Q6H PRN PO MODERATE PAIN LEVEL 4-6; Start 06/12/16 at 15:00 Docusate Sodium (Colace) 100 mg Q12H PRN PO CONSTIPATION; Start 06/12/16 at 15 :00 Zolpidem Tartrate (Ambien) 5 mg QHS PRN PO SLEEP; Start 06/12/16 at 15:00 Famotidine 20 mg 20 mg Q12 PO Last administered on 06/13/16at 08:10; Admin Dose 20 MG; Start 06/12/16 at 15:00 Vancomycin HCl/ Sodium Chloride (Vancocin/NS) 250 ml @ 83.333 mls/ hr Q12H IVPB Last administered on 06/13/16at 03:28; Admin Dose 83.333 MLS/HR; Start at 04:00 RODERICK VELA MD Jun 13, 2016 12:15
--- NOTE | 2016-06-13 14:43 | PN ---
Date/Time of Note Date/Time of Note DATE: 06/13/16 TIME: 14:40 Assessment/Plan Lines/Catheters IV Catheter Type (from [facility]): Peripheral IV Rueda in Place (from [facility]): No Assessment/Plan Chief Complaint/Hosp Course 1. Perirectal abscess, not palpable, s/p IR drainage 06/12 -Antibiotics -Drain -Will need outpt follow up with colorectal sx 2. Possible fistula in ano as source of the abscess. The patient will need eventual colorectal surgical evaluation. 3. Cardiac stents with history of myocardial infarction and antiplatelet therapy. The patient is high risk for bleeding. Therefore, will avoid surgery and plan for IR drainage placement. 4. Hypertension. Continue diet and medication control. 5. Hypercholesterolemia. Continue diet and medication control. 6. Kidney stone without acute obstruction. Continue fluid hydration. Thank you Problems: Subjective 24 Hr Interval Summary s/p IR drain placement 06/12. Pain resolved. Feels much better. BM. No nausea or vomiting. No fevers or chills. No chest pain or shortness of breath. No abdominal pain. No visual or neurologic changes. No dysuria. Exam/Review of Systems Vital Signs Vitals Vital Signs Date Time Temp Pulse Resp B/P Pulse Ox O2 Delivery O2 Flow Rate FiO2 06/13/16 08:00 98.0 67 118/61 99 Room Air 06/12/16 20:00 16 06/12/16 14:10 3 Intake and Output 06/12/16 06/12/16 06/13/16 15:00 23:00 07:00 Intake Total 3630 ml 650 ml Output Total 10 ml Balance -10 ml 3630 ml 650 ml Exam Free Text/Dictation GENERAL: No acute distress, comfortable, pleasant. HEENT: Pupils equal, reactive. No scleral icterus. Mucous membranes are moist. NECK: Supple. No JVD. CHEST: Normal respiratory effort. No wheezing. CARDIAC: S1, S2 present. ABDOMEN: Soft, nontender. EXTREMITIES: No edema. VASCULAR: Capillary refill is less than 2 seconds. NEUROLOGIC: Alert, oriented, moves all 4 extremities grossly. RECTAL: No induration or fluctuance palpable. Drain. Results Result Diagram: 06/13/16 0520 06/13/16 0520 REYNA LIM MD Jun 13, 2016 14:43
[2016-06-13 20:00] VITALS: BP 119/64; PULSE 72
[2016-06-13] MEDS: ATORVASTATIN 10 MG TAB PO SCH (20:50)
[2016-06-13] MEDS: TAMSULOSIN (SR) 0.4 MG CAP PO SCH (20:50)
[2016-06-13] MEDS: EZETIMIBE 10 MG TAB PO SCH (20:50)
[2016-06-14] MEDS: SOD CHLORIDE 0.9% 1,000 ML IV SCH ×2 (01:30→09:01)
[2016-06-14] MEDS: VANCOMYCIN 1.5 GM in SOD CHLORIDE 0.9% 250 ML IVPB SCH (04:22)
[2016-06-14] MEDS: PIPER-TAZO 3.375 GM IV (PMX) 100 ML IVPB SCH (05:47)
[2016-06-14 07:05] LABS: BASOPHILS % 0.6 % (0.0-2.0); EOSINOPHILS # 0.2 10^3/ul (0.0-0.5); EOSINOPHILS % 3.9 % (0.0-7.0); HEMATOCRIT 36.9 % (42.0-52.0); HEMOGLOBIN 12.4 g/dl (14.0-18.0); LYMPHOCYTES # 1.3 10^3/ul (0.8-2.9); LYMPHOCYTES % 31.5 % (15.0-51.0); MEAN CORPUSCULAR HEMOGLOBIN 28.5 pg (29.0-33.0); MEAN CORPUSCULAR HGB CONC 33.8 g/dl (32.0-37.0); MEAN CORPUSCULAR VOLUME 84.5 fl (82.0-101.0); MEAN PLATELET VOLUME 10.8 fl (7.4-10.4); MONOCYTE # 0.4 10^3/ul (0.3-0.9); MONOCYTES % 10.5 % (0.0-11.0); NEUTROPHIL # 2.2 10^3/ul (1.6-7.5); NEUTROPHILS % 53.5 % (39.0-77.0); PLATELET COUNT 100 10^3/UL (140-440); RED BLOOD COUNT 4.37 10^6/ul (4.70-6.10); RED CELL DISTRIBUTION WIDTH 13.3 % (11.5-14.5); UNCORRECTED WBC 4.2 10^3/ul (4.8-10.8); WHITE BLOOD COUNT 4.2 10^3/ul (4.8-10.8)
[2016-06-14 07:22] LABS: POTASSIUM 3.9 mmol/L (3.5-5.1)
[2016-06-14 07:24] LABS: CONDITION 1
[2016-06-14 07:24] LABS: CREATININE 0.9 mg/dl (0.61-1.24)
[2016-06-14 07:25] LABS: CALCIUM 8.6 mg/dl (8.4-10.2)
[2016-06-14 07:57] VITALS: BP 146/82; RESP 18
[2016-06-14] MEDS: FAMOTIDINE 20 MG TAB PO SCH (08:51)
[2016-06-14] MEDS: FISH OIL 1,000 MG CAP PO SCH (08:52)
[2016-06-14] MEDS: NIACIN 500 MG TAB PO SCH (08:52)
--- NOTE | 2016-06-14 11:59 | PN ---
Date/Time of Note Date/Time of Note DATE: 06/14/16 TIME: 11:57 Assessment/Plan Lines/Catheters IV Catheter Type (from [facility]): Peripheral IV Rueda in Place (from [facility]): No Assessment/Plan Chief Complaint/Hosp Course 1. Perirectal abscess, not palpable, s/p IR drainage 06/12 -Antibiotics -Drain -DC planning -Will need outpt follow up with colorectal sx 2. Possible fistula in ano as source of the abscess. The patient will need eventual colorectal surgical evaluation. 3. Cardiac stents with history of myocardial infarction and antiplatelet therapy. The patient is high risk for bleeding. Therefore, will avoid surgery and plan for IR drainage placement. 4. Hypertension. Continue diet and medication control. 5. Hypercholesterolemia. Continue diet and medication control. 6. Kidney stone without acute obstruction. Continue fluid hydration. Thank you Problems: Subjective 24 Hr Interval Summary s/p IR drain placement 06/12. Pain resolved. Feels much better. BM. No nausea or vomiting. No fevers or chills. No chest pain or shortness of breath. No abdominal pain. No visual or neurologic changes. No dysuria. Exam/Review of Systems Vital Signs Vitals Vital Signs Date Time Temp Pulse Resp B/P Pulse Ox O2 Delivery O2 Flow Rate FiO2 06/14/16 07:57 98.1 60 18 146/82 98 06/13/16 20:00 Room Air 06/12/16 14:10 3 Intake and Output 06/13/16 06/13/16 06/14/16 15:00 23:00 07:00 Intake Total 2280 ml 1550 ml Output Total 1500 ml 5 ml Balance 780 ml 1545 ml Exam Free Text/Dictation GENERAL: No acute distress, comfortable, pleasant. HEENT: Pupils equal, reactive. No scleral icterus. Mucous membranes are moist. NECK: Supple. No JVD. CHEST: Normal respiratory effort. No wheezing. CARDIAC: S1, S2 present. ABDOMEN: Soft, nontender. EXTREMITIES: No edema. VASCULAR: Capillary refill is less than 2 seconds. NEUROLOGIC: Alert, oriented, moves all 4 extremities grossly. RECTAL: No induration or fluctuance palpable. Drain. Results Result Diagram: 06/14/16 0522 06/14/16 0530 REYNA LIM MD Jun 14, 2016 11:59
[2016-06-14] MEDS ORDERED: LEVOFLOXACIN 500 MG TAB PO SCH (12:05)
[2016-06-14] MEDS ORDERED: LEVOFLOXACIN 500 MG TAB ONE (14:10)
--- NOTE | 2016-06-14 15:20 | PDOCDIS ---
Discharge Instructions DIAGNOSIS Discharge Diagnosis: perirectal abscess CONDITION Patient Condition: Good HOME CARE INSTRUCTIONS: Diet Instructions: Reduced CalorieSpecial Diet: Low sugar, low fat diet ACTIVITY: Activity Restrictions: Slowly Increase Activity Bathing Restrictions: Sponge Bath FOLLOW UP/APPOINTMENTS Appointments Dr. Harry on Wednesday06/16/2016; call the office on Wednesday morning for a same day appointment. Dr. Nicole this week for follow-up appointment as your Brillanta was stopped for one day while you were in the hospital. Dr. Hoffmann (PCP) in 2 weeks. SCHOOL/WORK RELEASE School/Work Release Comment: No work until cleared by RODERICK Rincon MD Jun 14, 2016 15:20
--- NOTE | 2016-06-14 18:12 | DS ---
DATE OF ADMISSION: 06/11/2016 DATE OF DISCHARGE: 06/14/2016 DISCHARGE DIAGNOSES: 1. Perirectal abscess, status post drain placement by interventional radiology. 2. Escherichia coli and alpha hemolytic strep species; perirectal abscess. This is multidrug sensitive. The E. coli is sensitive to Levaquin, which the patient was discharged on. A total course of 14 days was given. 3. Hypertension. 4. Coronary artery disease, status post stent placement. The patient's Brilinta was held for 1 day and converted to Plavix. The patient is resuming his Brilinta 90 mg orally twice daily. 5. Hyperlipidemia. 6. History of nephrolithiasis. 7. Diet-controlled diabetes. Stable hemoglobin A1c 6.5. The patient was counseled on a low carbohydrate diet and increased exercise. HOSPITAL COURSE: The patient is a very pleasant 56-year-old gentleman with aforementioned past medical history, who was admitted by my associate, Dr. Landon Mckeon. The patient was found to have a perirectal abscess. He was placed on broad spectrum antibiotics with vancomycin and Zosyn. The patient underwent went surgical consultation with Dr. Bolden, who recommended interventional radiology, placement of a drain in the perirectal abscess. The drain was inserted successfully placed by Dr. Cisco Long. The pus was sent to the lab for evaluation. The microorganism that grew was E. coli and alpha lytic strep species. The sensitivities returned on hospital day #3, and the bacteria was found to be sensitive to Levaquin. The patient was covered oral Levaquin. Vancomycin and Zosyn were stopped. The patient's pain improved immediately after drain placement. The drain was placed shortly after admission , and the drainage upon discharge was about 20 mL in the last 24 hours. This was confirmed with nursing. The patient stated he was feeling better and was afebrile. Vital signs were normal. Of note, the patient's initial white blood cell count was 6.6, which was within normal limits and was 4.2 at the time of discharge. I had a lengthy discussion with the patient's family at the bedside. The patient will follow up with Dr. Harry, whom I spoke to directly over the phone. Dr. Harry is a colorectal surgeon, who will be seeing the patient on 06/16/2016, in his office. Dr. Gingold is aware that the patient has a drain in place, as well as the patient being on Brilinta for his cardiac stents. Based on the evaluation, Dr. Harry could determine what further treatment needs to be done. The patient did have a CT scan of abdomen and pelvis that revealed a perirectal abscess with probable connection to the rectum at the 3 o'clock position and some small renal cysts, and tiny nonobstructing right renal stones. CONDITION ON DISCHARGE: Stable. DISPOSITION: Discharged to home with family. DISCHARGE MEDICATIONS: 1. Brilinta 90 mg p.o. b.i.d. 2. Atorvastatin 10 mg once daily. 3. Fish oil 1000 mg once daily. 4. Carvedilol 6.25 mg twice daily. 5. Nystatin 1000 mg once daily. 6. Lescol 20 mg once daily. 7. Aspirin 81 mg once daily. 8. Coenzyme Q 100 mg once daily. 9. Aspirin 81 mg once daily. FOLLOW-UP VISITS: The patient is to follow up with Dr. Harry on Wednesday, 08/2016, in his office. The patient is also to follow up with Dr. Collins in his office in 1 week. Lastly, the patient is to follow up with his primary care physician in 2 weeks. The patient's primary care physician is Dr. Hoffmann. Dictated By: RODERICK IRAHETA/DESI Conf#: [id number] DID#: [id number]
== END 2016-06-14 16:25 | disposition home or self-care (01) | DRG 395 ==
LOC: FTE 12:11 → MS2 20:20
PROVIDERS: ADMIT Internal Medicine; ATTEND Internal Medicine
PROC: 0D9P30Z Drainage of Rectum with Drainage Device, Percutaneous Approach (ICD-10-PCS; principal; 2016-06-12)
DX: K61.1 Rectal abscess (principal); N20.0 Calculus of kidney; I10 Essential (primary) hypertension; Z95.5 Presence of coronary angioplasty implant and graft; E78.00 Pure hypercholesterolemia, unspecified; Z79.02 Long term (current) use of antithrombotics/antiplatelets; R73.03 Prediabetes; B96.20 Unspecified Escherichia coli [E. coli] as the cause of diseases classified elsewhere; B95.4 Other streptococcus as the cause of diseases classified elsewhere
CPT/HCPCS: 36415; 74000; 74177; 77012; 80048; 80053; 80061; 80069; 80076; 80202; 81001; 81003; 83036; 84436; 84479; 85025; 85610; 87070; 87075; 96374; J1335; J2250; J2543; J3010; J3370; J7030; J7040; J7050; Q9967

== ENCOUNTER 2017-09-08 01:21 | Inpatient (IN) | END 2017-09-09 10:20 | disposition home or self-care (01) | DRG 247 ==